=== PATIENT | female | born 1960 | race Caucasian/White ===

== ENCOUNTER 2018-10-17 17:42 | Emergency (ER) | payer OTHER, SELFPAY ==
[~2018-10-17 17:42] MED LIST: ISOVUE-370 76%-LOCM 1 ML ONE; Iopamidol 370 76% 50 ML VIAL FS ONE
[2018-10-17 18:10] LABS: #Basophils 0.1 thou/uL (0.0-0.2); #Lymphocytes 1.7 thou/uL (1.20-3.40); #Monocytes 0.5 thou/uL (0.11-0.59); #Neutrophils 6.8 thou/uL (1.40-6.50); %Basophils 0.6 % (0.0-1.0); %Eosinophils 0.4 % (0.0-10.0); %Lymphocytes 18.9 % (21.0-51.0); %Monocytes 5.8 % (0.0-10.0); %Neutrophils 74.3 % (42.0-75.0); Hemoglobin 14.4 g/dL (12.0-16.0); Mean Corpuscular HGB CONC 33.1 g/dL (32.0-36.0); Mean Corpuscular Hemoglobin 31.1 pg (27.0-31.0); Mean Corpuscular Volume 94.2 fL (78.0-98.0); Mean Platelet Volume 7.7 fL (7.4-10.4); Platelet Count 370 thou/uL (130-400); RBC Distribution Width 11.9 % (11.5-14.5); Red Blood Cell (RBC) Count 4.62 mill/uL (4.20-5.40); White Blood Cell (WBC) Count 9.1 thou/uL (4.8-10.8)
[2018-10-17] MEDS ORDERED: Morphine 4 MG/ML VIAL ONE ×3 (18:14→21:51)
[2018-10-17] MEDS ORDERED: Ondansetron PF 4 MG/2 ML Vial ONE ×2 (18:14→21:58)
[2018-10-17 18:33] LABS: ALT (SGPT) 23 U/L (8-55); AST (SGOT) 20 U/L (5-34); Albumin 4.3 g/dL (3.5-5.0); Alkaline Phosphatase 102 U/L (40-150); Anion Gap 13 mmol/L (10-20); BUN (Urea Nitrogen) 16 mg/dL (9.8-20.1); Bilirubin, Total 0.2 mg/dL (0.2-1.2); Calc. Creatinine Clearance 0 mL/min (70-130); Calcium 9.7 mg/dL (7.8-10.44); Carbon Dioxide 24 mmol/L (22-29); Chloride 105 mmol/L (98-107); Estimated GFR-MDRD 71; Glucose 165 mg/dL (70-105); Lipase 50 U/L (8-78); Potassium 3.7 mmol/L (3.5-5.1); Protein, Total 7.3 g/dL (6.0-8.3); Sodium 138 mmol/L (136-145)
[2018-10-17 19:35] LABS: Bilirubin Negative (Negative); Blood, Urine Negative (Negative); Clarity CLOUDY (Clear); Glucose, Urine (Dipstick) 100 mg/dL (Negative); Leukocyte Moderate (Negative); Nitrite Positive (Negative); Protein, Urine (Dipstick) Negative (Neg-Trace); Specific Gravity, Urine 1.018 (1.002-1.036)
[2018-10-17 19:37] LABS: Bacteria/HPF 4+ HPF (None Seen); Hyaline Casts/LPF 0-3 HYALINE CAST LPF (0-3 Hyaline); Pathc Cast-AUWi Flag 0.13 (0-2.49); Squamous Epithelial 0-3 HPF (0-3); WBC/HPF 21-50 HPF (0-3)
--- NOTE | 2018-10-17 20:34 | CT ---
CT Abdomen Pelvis W Con History: Abdominal pain Comparison: None. Findings: Mild atelectasis in the lung bases. No pericardial effusion. There is intrahepatic biliary dilatation as well as extrahepatic biliary dilatation, greater than would be expected for reservoir effect from prior cholecystectomy. Common bile duct measures up to 1.2 cm with normal caliber at the pancreatic head. Prior gastric bypass surgery. Small fat-containing umbilical hernia. The pelvis there is no abnormal round mass measuring 7.6 x 6.1 x 6.3 cm with some mass effect and lef tward displacement of the rectum. No no retroperitoneal periaortic adenopathy. No hydronephrosis. Appendix is visualized and is normal. No dilated loops of large or small bowel. No acute osseous abnormality. Impression: 1. Large pelvic mass causing leftward displacement of the rectum as described. This is concerning for underlying malignancy. Pelvic ultrasound and/or MRI pelvis with and without contrast recommended. Gynecologic consultation advised. 2. Abnormal intrahepatic and extra hepatic biliary dilatation, greater than would be expected for res ervoir effect. The common bile duct caliber is normal at the pancreatic head. If clinically warranted, ERCP/MRCP recommended. Recommend correlation with biliary enzymes.
--- NOTE | 2018-10-17 23:18 | ULT ---
US Pelvic Transvag W Doppler History: Pelvic pain Comparison: CT same day Findings: Real-time grayscale, color, and spectral analysis of the pelvis performed. Prior hysterectomy. Abnormal mass the right adnexa with papillary projections in the hypervascularity with cystic components. Internal septations. Mass measures approximately 7 x 4.7 by [place]. Impression: Complex cystic mass in the right ovary with papillary projections concerning for underlyi ng malignancy. Gynecologic consultation advised.
[2018-10-17] MEDS ORDERED: Acetaminophen 500 MG TAB ONE (23:46)
[2018-10-17] MEDS ORDERED: HYDROcodone/Acetaminophen 5/325 mg Tablet ONE ×2 (23:46→23:49)
== END 2018-10-17 23:56 | disposition home or self-care (01) ==
LOC: ERS 17:42
DX: N83.201 Unspecified ovarian cyst, right side (principal)
CPT/HCPCS: 74177; 76856; 80053; 81003; 81015; 83690; 85025; 96374; 96375; 96376; J2270; J2405; Q9966; Q9967